=== PATIENT | male | born 1985 | race Two or more races ===

== ENCOUNTER 2023-11-30 21:21 | Emergency (ER) | payer SELFPAY ==
[2023-11-30 21:27] VITALS: BP 170/94; PULSE 73; RESP 22; TEMP 36.7; O2SAT 96; BMI 32.7
--- NOTE | 2023-11-30 21:38 | CTR_ITS ---
PROCEDURE INFORMATION: Exam: CT Abdomen And Pelvis Without Contrast Exam date and time: 11/30/2023 10:15 PM Age: 38 years old Clinical indication: Abdominal pain; Patient HX: Left flank/groin pain with dysuria. History of nephrolithiasis. ; Additional info: Left flank/groin pain x1 day TECHNIQUE: Imaging protocol: Computed tomography of the abdomen and pelvis without contrast. Radiation optimization: All CT scans at this facility use at least one of these dose optimization techniques: automated exposure control; mA and/or kV adjustment per patient size (includes targeted exams where dose is matched to clinical indication); or iterative reconstruction. COMPARISON: No relevant prior studies available. RADIATION DOSE METRICS: Total DLP (mGy-cm): 829.48 FINDINGS: Liver: Normal. No mass. Gallbladder and bile ducts: Normal. No calcified stones. No ductal dilation. Pancreas: Normal. No ductal dilation. Spleen: Normal. No splenomegaly. Adrenal glands: Normal. No mass. Kidneys and ureters: There is an obstructing 4 mm stone in the proximal left ureter with upstream hydroureter and mild hydronephrosis. Stomach and bowel: Unremarkable. No obstruction. No mucosal thickening. Appendix: The appendix is not visualized but there are no secondary signs of acute appendicitis. Intraperitoneal space: Unremarkable. No free air. No significant fluid collection. Vasculature: Unremarkable. No abdominal aortic aneurysm. Lymph nodes: Unremarkable. No enlarged lymph nodes. Urinary bladder: Unremarkable as visualized. Reproductive: Unremarkable as visualized. Bones/joints: Unremarkable. No acute fracture. Soft tissues: Unremarkable. CT/CT kidney stone 24005 IMPRESSION: There is an obstructing 4 mm stone in the proximal left ureter with upstream hydroureter and mild hydronephrosis.
--- NOTE | 2023-11-30 21:39 | ED_ITS ---
HPI - Male Genitourinary 2 General: Chief complaint: Abdominal Pain Stated complaint: back groin pain cesario pee Time Seen by Provider: 11/30/23 21:36 Source: patient Mode of arrival: ambulatory Limitations: no limitations History of Present Illness: Patient is a 38-year-old male presenting to the emergency department complaining of left-sided flank pain onset 1 day. Pain began all of a sudden and is now radiating down into the left groin. He has a history of kidney stone many years ago, states this feels identical. He notes that he has not been urinating as much, but what he has been urinating has appeared dark. He is reporting 10/10 sharp pain right now associated with nausea. He is not reporting any fever, vomiting, chest pain, breathing difficulties, or any other symptoms. On entry into the emergency department, he is hunched over in pain and very diaphoretic. MD Complaint: other (Left flank pain) Onset (ago): day(s) Duration: constant Location: left flank Radiation: right inguinal region Severity: severe Severity scale (1-10): 10 Quality: sharp Relieving factors: none Exacerbating factors: movement Associated symptoms: Reports nausea; Deny dysuria, hematuria or vomiting Review of Systems 2 General: Reports: 10 or more systems reviewed and unremarkable except in HPI and below Const: Reports: diaphoresis; Denies: fever(s), chills, change in appetite or change in weight ENMT: Denies: throat pain or hoarseness Card: Denies: chest pain, palpitations or lightheadedness Resp: Denies: dyspnea, productive cough or wheezing GI: Reports: nausea; Denies: abdominal pain, vomiting, diarrhea, constipation, bloating, change in stool character or hematochezia : Reports: flank pain, difficulty urinating and other (Groin pain); Denies: dysuria or hematuria Musc: Denies: neck pain or back pain Skin/Breast: Denies: rash or new lesions Neuro: Denies: headache(s) or dizziness Physical Exam 2 Const: COMMON NORMALS: average body habitus, patient oriented x3, no limitations and alert GENERAL APPEARANCE: cooperative, in distress and diaphoretic ORIENTATION/CONSCIOUSNESS: Yes awake HENMT: COMMON NORMALS: normocephalic, atraumatic and moist oral mucous membranes HEAD & SCALP: normocephalic and atraumatic Eye: COMMON NORMALS: EOMs intact bilaterally and conjunctivae normal C ONJUNCTIVA: Yes conjunctivae normal Neck/C-Spine: COMMON NORMALS: full ROM Resp: COMMON NORMALS: No use of accessory muscles and clear to auscultation bilaterally EFFORT & INSPECTION: Yes tachypneic AUSCULTATION: clear to auscultation bilaterally Cardio: COMMON NORMALS: regular rate and regular rhythm RATE: regular rate RHYTHM: regular rhythm GI: COMMON NORMALS: Normal to inspection, nondistended, normoactive bowel sounds present and Soft to palpation PALPATION: Yes Soft to palpation and Yes Tenderness to palpation present (GI) (Tender in the left lower quadrant/suprapubic region) : BLADDER/KIDNEY EXAM: Yes CVA tenderness Back/Pelvis: GENERAL BACK: Yes CVA tenderness CVA tenderness: left THORACIC SPINE/UPPER BACK: Yes normal to inspection LUMBAR SPINE/LOWER BACK: Yes normal to inspection Extremity: COMMON NORMALS: normal to inspection, full ROM and capillary refill normal Neuro: COMMON NORMALS: patient oriented x3, moves all extremities, no focal motor deficits and no sensory deficits noted SENSORIUM/ORIENTATION: Yes alert Skin: COMMON NORMALS: no rashes or lesions noted GENERAL SKIN EXAM: no rashes or lesions noted Course 2 Vital Signs: Vital signs: Vital Signs Temperature 98.0 F 11/30/23 21:27 Pulse Rate 67 11/30/23 23:33 Respiratory Rate 16 11/30/23 23:33 Blood Pressure 123/83 11/30/23 23:33 Pulse Oximetry 97 11/30/23 23:33 Oxygen Delivery Me thod Room Air 11/30/23 23:33 MDM - Male Medical Decision Making Patient arrives for 1 day of left-sided flank pain radiating into the groin. Reported history of kidney stones. Decreased urination today was also noted. On arrival patient was hunched over complaining of 10/10 pain. His blood work demonstrated an elevation in white count, and his urinalysis did not reveal any signs of infection. CT abdomen pelvis without contrast obtained that did show a 4 mm stone in the proximal ureter that did appear to be obstructive in nature, with some hydroureter and hydronephrosis. Patient is rechecked after being given Toradol and morphine, as well as fluids and nausea medications, and is currently comfortable at this time. I discussed with him that we will treat with an alpha-татьяна and control his pain with hydrocodone, and he is to follow-up with urology for any further evaluation. Also discussed increasing his fluid intake and reasons to return to the emergency department. He understands with plan and will be discharged home at this time. Lab Data 11/30/23 21:43 11/30/23 21:43 Radiology Impressions Abdomen/Pelvis CT 11/30/23 21:38 IMPRESSION: There is an obstructing 4 mm stone in the proximal left ureter with upstream hydroureter and mild hydronephrosis. Laboratory Results WBC 18.94 10^3/uL (3.29-11.43) H 11/30/23 21:43 RBC 5.58 10^6/uL (3.85-5.65) 11/30/23 21:43 Hgb 16.50 g/dL (11.27-16.99) 11/30/23 21:43 Hct 47.2 % (37-53) 11/30/23 21:43 MCV 84.6 fl (82-101) 11/30/23 21:43 MCH 29.6 pg (27-33) 11/30/23 21:43 MCHC 35.0 g/dL (30-55) 11/30/23 21:43 RDW 11.9 % (12.1-15.1) L 11/30/23 21:43 Plt Count 197 10^3/cmm (157-399) 11/30/23 21:43 MPV 12.0 fL (7.4-10.4) H 11/30/23 21:43 Neut % (Auto) 74.7 % 11/30/23 21:43 Lymph % (Auto) 14.7 % 11/30/23 21:43 [place] % (Auto) 7.1 % 11/30/23 21:43 Eos % (Auto) 2.6 % 11/30/23 21:43 Baso % (Auto) 0.5 % 11/30/23 21:43 Neut # (Auto) 14.14 10^3/uL (1.8-7.7) H 11/30/23 21:43 Lymph # (Auto) 2.8 10^3/uL (0.8-4.8) 11/30/23 21:43 [place] # (Auto) 1.3 10^3/uL (0.2-0.9) H 11/30/23 21:43 Eos # (Auto) 0.5 10^3/uL (0.0-0.8) 11/30/23 21:43 Baso # (Auto) 0.1 10^3/uL (0.0-0.1) 11/30/23 21:43 Nucleated RBC % (auto) 0 % 11/30/23 21:43 Nucleated RBCs # 0.0 /100WBC 11/30/23 21:43 Sodium 135 mmol/L (136-145) L 11/30/23 21:43 Potassium 4.1 mmol/L (3.5-5.1) 11/30/23 21:43 Chloride 97 mmol/L (98-107) L 11/30/23 21:43 Carbon Dioxide 26 mmol/L (22-29) 11/30/23 21:43 Anion Gap 16.1 (5-19) 11/30/23 21:43 BUN 21 mg/dL (6-20) H 11/30/23 21:43 Creatinine 1.3 mg/dL (0.7-1.2) H 11/30/23 21:43 GFR Calculation 62.1 mL/min (90-130) L 11/30/23 21:43 Glucose 95 mg/dL (65-115) 11/30/23 21:43 Calculated Osmolality 283 mOsm/kg (285-295) L 11/30/23 21:43 Calcium 8.9 mg/dL (8.5-10.5) 11/30/23 21:43 Total Bilirubin 0.4 mg/dL (0.15-1.2) 11/30/23 21:43 AST 23 U/L (0-40) 11/30/23 21:43 ALT 28 U/L (0-41) 11/30/23 21:43 Alkaline Phosphatase 108 U/L (40-130) 11/30/23 21:43 Total Protein 7.7 g/dL (6.6-8.7) 11/30/23 21:43 Albumin 4.5 g/dL (3.5-5.2) 11/30/23 21:43 Globulin 3.2 g/dL (1.3-4.6) 06/08/24 21:43 Urine Color Yellow (Yellow) 11/30/23 21:39 Urine Appearance Clear (CLEAR) 11/30/23 21:39 Urine pH 5 (5-7) 11/30/23 21:39 Ur Specific [place] 1.025 (1.005-1.030) 11/30/23 21:39 Urine Protein Trace (Negative) 11/30/23 21:39 Urine Glucose (UA) Norm (Normal) 11/30/23 21:39 Urine Ketones 1+ (Negative) H 11/30/23 21:39 Urine Blood Neg (Negative) 11/30/23 21:39 Urine Nitrate Negative (Negative) 11/30/23 21:39 Urine Bilirubin Neg (Negative) 11/30/23 21:39 Urine Urobilinogen Neg mg/dL (Negative) 11/30/23 21:39 Ur Leukocyte Esterase Negative (Negative) 11/30/23 21:39 Urine RBC 0-4 /hpf (0-2) H 11/30/23 21:39 Urine WBC 0-4 /hpf (0-5) H 11/30/23 21:39 Ur Squamous Epith Cells 0-4 /hpf (0-5) H 11/30/23 21:39 Amorphous Sediment Not Reportable 11/30/23 21:39 Urine Bacteria Trace /hpf (NONE) 11/30/23 21:39 Urine Mucus 1+ /hpf 11/30/23 21:39 All radiology interpretation(s) finalized by discharge Discharge Plan Discharge Patient Disposition: Home Clinical Impression: Kidney stone Condition: Stable Prescriptions: New Flomax 0.4 mg capsule 0.4 mg PO DAILY Qty: 20 0RF hydrocodone-acetaminophen 7.5-325 mg tablet 1 tab PO Q8H PRN (Reason: pain) Qty: 15 0RF Discharge Orders: Discharge ED (Routine); Ordered 11/30/23 Ordered By: Jono Vazquez Discharge Diet: As Directed Discharge Activity: Increase activity as tolerated Patient Instructions: Kidney Stones (ED) Activity Restrictions/Additional Instructions: Hydrocodone for pain. Take Flomax as directed. Follow-up with urology as discussed. Plenty of fluids. Return with any new or concerning symptoms you may have. Coding Level of Care Code ED X [facility] Physician for Samia Hall
[2023-11-30 21:51] LABS: Basophils # 0.1 10^3/uL (0.0-0.1); Basophils % 0.5 %; Eosinophils # 0.5 10^3/uL (0.0-0.8); Eosinophils % 2.6 %; Hematocrit 47.2 % (37-53); Lymphocytes # 2.8 10^3/uL (0.8-4.8); Lymphocytes % 14.7 %; Mean Corpuscular Hemoglobin 29.6 pg (27-33); Mean Corpuscular Volume 84.6 fl (82-101); Monocytes # 1.3 10^3/uL (0.2-0.9); Monocytes % 7.1 %; Neutrophils # 14.14 10^3/uL (1.8-7.7); Neutrophils % 74.7 %; Nucleated Red Blood Cells % 0 %; Platelet Count 197 10^3/cmm (157-399); Red Blood Count 5.58 10^6/uL (3.85-5.65); Red Cell Distribution Width 11.9 % (12.1-15.1); White Blood Count 18.94 10^3/uL (3.29-11.43)
[2023-11-30 22:05] LABS: Alanine Aminotransferase 28 U/L (0-41); Albumin Level 4.5 g/dL (3.5-5.2); Alkaline Phosphatase 108 U/L (40-130); Anion Gap 16.1 (5-19); Aspartate Amino Transferase 23 U/L (0-40); Blood Urea Nitrogen 21 mg/dL (6-20); Calcium 8.9 mg/dL (8.5-10.5); Carbon Dioxide 26 mmol/L (22-29); Chloride 97 mmol/L (98-107); Creatinine Clr Calc Pharmacy 83.2539; Globulin 3.2 g/dL (1.3-4.6); Glomerular Filtration Rate 62.1 mL/min (90-130); Glucose 95 mg/dL (65-115); Osmolality Calculated 283 mOsm/kg (285-295); Potassium 4.1 mmol/L (3.5-5.1); Sodium 135 mmol/L (136-145); Total Bilirubin 0.4 mg/dL (0.15-1.2); Total Protein 7.7 g/dL (6.6-8.7)
[2023-11-30] MEDS: sodium chloride 0.9% 1,000 ML 999 ML IV (22:08)
[2023-11-30 22:09] VITALS: RESP 18; O2SAT 96
[2023-11-30] MEDS: morphine 4 mg/mL SDV 1 mL IVP (22:09)
[2023-11-30] MEDS: metoclopramide 5 mg/mL SDV 2 mL 10 MG IVP (22:09)
[2023-11-30] MEDS: ketorolac 60 mg/2 mL INJ 30 MG IVP (22:30)
[2023-11-30 22:34] LABS: Glucose Urine UA Norm (Normal); Ketones Urine 1+ (Negative); Protein Urine Trace (Negative); Specific Gravity, Urine 1.025 (1.005-1.030); Urine Appearance Clear (CLEAR); Urine Color Yellow (Yellow); pH Urine 5 (5-7)
[2023-11-30 22:35] LABS: Add Urine Microscopic? YES; Bacteria Urine TRACE /hpf; Bilirubin Urine Neg (Negative); Blood Urine Neg (Negative); Leukocyte Esterase Urine Negative (Negative); Mucus Urine 1+ /hpf; Nitrate Urine Negative (Negative); RBC Urine 0-4 /hpf (0-2); Squamous Epithelial Cell Urine 0-4 /hpf (0-5); Urobilinogen Urine Neg (Negative); WBC Urine 0-4 /hpf (0-5)
[2023-11-30 23:33] VITALS: BP 123/83; PULSE 67; RESP 16; O2SAT 97
[2023-11-30 23:45] VITALS: BP 123/65; PULSE 69; RESP 16; O2SAT 98
[2023-11-30] MEDS: tamsulosin 0.4 mg Capsule 0.400000000000000022 MG PO (23:49)
--- NOTE | 2023-12-03 08:00 | DCPLANNER ---
Urology Referral sent to [facility]- [phone] 12/03/23 JAMIL.
== END 2023-11-30 23:56 | disposition home or self-care (01) ==
PROVIDERS: Emergency Provider Physician Assistant
DX: N13.2 Hydronephrosis with renal and ureteral calculous obstruction (principal); Z87.442 Personal history of urinary calculi
CPT/HCPCS: 74176; 80053; 81001; 85025; 96361; 96374; 96375; 99285; J1885; J2270; J2765; J7030